=== PATIENT | female | born 1960 | race Caucasian/White ===

== ENCOUNTER 2016-11-03 19:07 | Observation (INO) | payer BC ==
[~2016-11-03] VITALS: Ht 165.1 cm; Wt 99.9 kg
[~2016-11-03 19:07] MED LIST: ACYC400T PO; CHLO10CA5 PO; GLUC100018 PO; LANS30CA66 PO; LOSA100T6 PO; MULT-475 PO; VENL150C6 PO
--- NOTE | 2016-11-03 19:17 | PHYS DOC ---
Past Medical History Past Medical History: Depression, DVT, Hypertension, IBS Additional Past Medical Histor: gastroparesis Past Surgical History: Cholecystectomy, , Hysterectomy Alcohol Use: None Drug Use: None Adult General Chief Complaint Chief Complaint: LOWER EXT PAIN HPI HPI Patient is a 56 year old female who presents with swelling and pain in the left leg. She states it started last night around the medial aspect of her left ankle and with touch to hurts. She states she's had a blood clot in the right leg which feels completely different than the sensation she filling the left leg. He states reason she had her blood clot last time was she was on hormone replacement and a smoker. She denies any shortness breath chest pain nausea vomiting. She does have a history of hypertension and depression. Review of Systems Review of Systems Constitutional: Denies fever or chills [] Eyes: Denies change in visual acuity, redness, or eye pain [] HENT: Denies nasal congestion or sore throat [] Respiratory: Denies cough or shortness of breath [] Cardiovascular: No additional information not addressed in HPI [] GI: Denies abdominal pain, nausea, vomiting, bloody stools or diarrhea [] : Denies dysuria or hematuria [] Musculoskeletal: Denies back pain or joint pain [] Integument: Denies rash or skin lesions [] Neurologic: Denies headache, focal weakness or sensory changes [] Endocrine: Denies polyuria or polydipsia [] Current Medications Current Medications Current Medications Medications (Trade) Dose Ordered Sig/Riley Start Time Stop Time Status Last Admin Dose Admin Enoxaparin Sodium (Lovenox Per Pharmacy Treatment Dosing) 1 each PRN DAILY PRN 11/03/16 20:45 UNV Morphine Sulfate 2 mg PRN Q2HR PRN 11/03/16 20:45 11/04/16 20:44 UNV Ondansetron HCl (Zofran) 4 mg PRN Q8HRS PRN 11/03/16 20:45 11/04/16 20:44 UNV Allergies Allergies Allergies Coded Allergies Type Severity Reaction Last Updated Verified citalopram Allergy Intermediate 04/24/16 Yes Physical Exam Physical Exam Constitutional: Well developed, well nourished, no acute distress, non-toxic appearance. [] HENT: Normocephalic, atraumatic, bilateral external ears normal, oropharynx moist, no oral exudates, nose normal. [] Eyes: PERRLA, EOMI, conjunctiva normal, no discharge. [] Neck: Normal range of motion, no tenderness, supple, no stridor. [] Cardiovascular:Heart rate regular rhythm, no murmur [] Lungs & Thorax: Bilateral breath sounds clear to auscultation [] Abdomen: Bowel sounds normal, soft, no tenderness, no masses, no pulsatile masses. [] Skin: Warm, dry, erythema partially 8 x 10 cm on the left medial ankle. Back: No tenderness, no CVA tenderness. [] Extremities: No tenderness, no cyanosis, no clubbing, ROM intact, no edema. [] Neurologic: Alert and oriented X 3, normal motor function, normal sensory function, no focal deficits noted. [] Psychologic: Affect normal, judgement normal, mood normal. [] Current Patient Data Vital Signs Vital Signs Date Time Temp Pulse Resp B/P (MAP) Pulse Ox O2 Delivery O2 Flow Rate FiO2 11/03/16 19:15 98.7 77 20 148/67 (94) 95 Room Air 98.7 Lab Values Laboratory Tests Test 11/03/16 19:35 White Blood Count 7.3 x10^3/uL (4.0-11.0) Red Blood Count 4.58 x10^6/uL (3.50-5.40) Hemoglobin 14.0 g/dL (12.0-15.5) Hematocrit 41.8 % (36.0-47.0) Mean Corpuscular Volume 91 fL (79-100) Mean Corpuscular Hemoglobin 31 pg (25-35) Mean Corpuscular Hemoglobin Concent 34 g/dL (31-37) Red Cell Distribution Width 13.5 % (11.5-14.5) Platelet Count 143 x10^3/uL (140-400) Neutrophils (%) (Auto) 57 % (31-73) Lymphocytes (%) (Auto) 35 % (24-48) Monocytes (%) (Auto) 7 % (0-9) Eosinophils (%) (Auto) 0 % (0-3) Basophils (%) (Auto) 0 % (0-3) Neutrophils # (Auto) 4.2 x10^3uL (1.8-7.7) Lymphocytes # (Auto) 2.6 x10^3/uL (1.0-4.8) Monocytes # (Auto) 0.5 x10^3/uL (0.0-1.1) Eosinophils # (Auto) 0.0 x10^3/uL (0.0-0.7) Basophils # (Auto) 0.0 x10^3/uL (0.0-0.2) Sodium Level 143 mmol/L (136-145) Potassium Level 4.1 mmol/L (3.5-5.1) Chloride Level 108 mmol/L (98-107) H Carbon Dioxide Level 27 mmol/L (21-32) Anion Gap 8 (6-14) Blood Urea Nitrogen 17 mg/dL (7-20) Creatinine 1.2 mg/dL (0.6-1.0) H Estimated GFR (Cockcroft-Gault) 46.3 BUN/Creatinine Ratio 14 (6-20) Glucose Level 110 mg/dL (70-99) H Calcium Level 8.8 mg/dL (8.5-10.1) Total Bilirubin 0.2 mg/dL (0.2-1.0) Aspartate Amino Transferase (AST) 15 U/L (15-37) Alanine Aminotransferase (ALT) 23 U/L (14-59) Alkaline Phosphatase 110 U/L (46-116) Total Protein 6.4 g/dL (6.4-8.2) Albumin 3.3 g/dL (3.4-5.0) L Albumin/Globulin Ratio 1.1 (1.0-1.7) Laboratory Tests 11/03/16 19:35 Laboratory Tests 11/03/16 19:35 EKG EKG [] Radiology/Procedures Radiology/Procedures Ultrasound shows she's positive for DVT left lower extremities. We'll start Lovenox admit to the hospitalist. Patient's in stable condition this time interim orders have been written. Impressions: Lower extremity DVT Course & Med Decision Making Course & Med Decision Making Pertinent Labs and Imaging studies reviewed. (See chart for details) [] Dragon Disclaimer Dragon Disclaimer This electronic medical record was generated, in whole or in part, using a voice recognition dictation system. Departure Departure Impression: Primary Impression: DVT (deep venous thrombosis) Disposition: ADMITTED INPATIENT Admitting Physician: Other Condition: STABLE Referrals: THOMAS TALAMANTES (PCP) JULIANA BURROUGHS MD Nov 03, 2016 19:17
[2016-11-03 20:08] LABS: BASO % 0 % (0-3); EOS % 0 % (0-3); HEMATOCRIT 41.8 % (36.0-47.0); LYMPH # 2.6 x10^3/uL (1.0-4.8); LYMPH % 35 % (24-48); MEAN CORPUSCULAR HEMOGLOBIN 31 pg (25-35); MEAN CORPUSCULAR HGB CONC 34 g/dL (31-37); MEAN CORPUSCULAR VOLUME 91 fL (79-100); MONO % 7 % (0-9); NEUT % 57 % (31-73); PLATELET COUNT 143 x10^3/uL (140-400); RED BLOOD COUNT 4.58 x10^6/uL (3.50-5.40); RED CELL DISTRIBUTION WIDTH 13.5 % (11.5-14.5); WHITE BLOOD COUNT 7.3 x10^3/uL (4.0-11.0)
[2016-11-03 20:26] LABS: CALCIUM 8.8 mg/dL (8.5-10.1); CREATININE 1.2 mg/dL (0.6-1.0); GFR 46.3; POTASSIUM 4.1 mmol/L (3.5-5.1)
[2016-11-03 20:31] LABS: ALBUMIN 3.3 g/dL (3.4-5.0); ALBUMIN/GLOBULIN RATIO 1.1 (1.0-1.7); TOTAL BILIRUBIN 0.2 mg/dL (0.2-1.0); TOTAL PROTEIN 6.4 g/dL (6.4-8.2)
[2016-11-03] MEDS ORDERED: ONDANSETRON PF 4 MG/2 ML VIAL. IV PRN (20:45)
[2016-11-03] MEDS ORDERED: MORPHINE SULFATE 2 MG/ML DISP.SYRIN. IV PRN (20:45)
--- NOTE | 2016-11-03 20:45 | RAD ---
Left leg venous Doppler study: Clinical indications: Left leg swelling and pain. Left lower leg and ankle redness and swelling. History of DVT 5 years ago on the right side. Findings: Duplex sonography (including chavez scale evaluation and color flow and waveform spectral analysis) of the proximal aspect of the greater saphenous vein and the proximal aspect of the profunda femoral vein and the entire length of the common femoral and superficial femoral and popliteal veins and the tibioperoneal trunk and the proximal aspect of the posterior tibial and peroneal veins of the left leg was performed. There is occlusive thrombosis within one of the paired left posterior tibial veins. The other posterior tibial vein is patent. The peroneal veins are patent. The femoral popliteal segment is patent. There is nonocclusive thrombosis within the left greater saphenous vein of the proximal left lower leg extending through to the ankle. The greater saphenous vein is patent within the thigh up to the confluence with the common femoral vein.. Impression: Occlusive DVT in one of the paired left posterior tibial veins. Nonocclusive thrombosis within the left greater saphenous vein within the left lower leg. Electronically signed by: Anuj Galarza MD (11/03/2016 8:42 PM)
[2016-11-03] MEDS ORDERED: LOSARTAN POTASSIUM 50 MG TABLET. PO SCH (22:30)
[2016-11-03] MEDS: VENLAFAXINE 50 MG TABLET. PO SCH (23:09)
[2016-11-03] MEDS: LORazepam 0.5 MG TABLET PO SCH (23:11)
[2016-11-03 23:22] VITALS: BP 135/66
--- NOTE | 2016-11-04 00:26 | HP ---
ADMIT DATE: 11/03/2016 CHIEF COMPLAINT: Lower extremity pain ____. HISTORY OF PRESENT ILLNESS: This is a 56-year-old woman with past medical history of DVT, who presented to the Emergency Room with pain and swelling in her left ankle. She related that this essentially started the day before when she was getting up from work to go home with a sharp, shooting pain into her ankle. She had noted some swelling as well, which however, had gone away by the time she woke up the next morning. Swelling and pain; however, recurred. She describes it as pins and needles or bees stinging her. Swelling also increased during the day and she decided to go [facility]. She was referred to the Emergency Room, as ultrasound could not be performed there and it was found positive for DVT here in the Emergency Room and started on Lovenox. Complicating factors include that she had a torn meniscus in her left knee about 4 weeks ago for which she is using a knee brace at work. She does have a history of prior DVT about 5 years ago, which apparently was unprovoked. Thought was that this potentially was related to her position at work with her lower extremities kept under her chair. She has been taking a baby aspirin since then to help prevent further episodes. PAST MEDICAL HISTORY: Hypertension, IBS, depression and gastroparesis. PAST SURGICAL HISTORY: Cholecystectomy, and hysterectomy. FAMILY HISTORY: Negative for DVTs. Father of sudden at age 37. SOCIAL HISTORY: She is , living with her . Smokes half to 1 pack a day. No toxic habits. ALLERGIES: CITALOPRAM, UNKNOWN REACTION. MEDICATIONS: MAR reconciled with home medications. REVIEW OF SYSTEMS: Positive only as per HPI for leg pain and swelling. Rest of organ system review is negative, particularly no chest pain or shortness of breath. PHYSICAL EXAMINATION: VITAL SIGNS: From today show a blood pressure of 125/61, heart rate of 68, respiratory rate at 20. She is afebrile. GENERAL: This is a 56-year-old woman, alert and oriented, in no acute distress. HEENT: Shows no scleral icterus. NECK: Supple without any lymphadenopathy. LUNGS: Clear. HEART: Regular rate and rhythm. ABDOMEN: Has positive bowel sounds, soft, nontender. EXTREMITIES: Show 1+ edema around her ankle and mid calf. Medial aspect of her distal lower extremity and ankle show mild erythema. SKIN: Otherwise, warm, soft and dry. LABORATORY DATA: CBC with a WBC of 7.3, hemoglobin 14, platelets of 143. Chemistries with a BUN and creatinine of 17 and 1.2, normal electrolytes, normal LFTs, albumin at 3.3. IMAGING STUDIES: Lower extremity ultrasound reveals nonocclusive thrombosis within the left greater saphenous vein within the left lower leg. ASSESSMENT AND PLAN: The patient is a 56-year-old woman with a second blood clot in 5 years. This event may have been incited by wearing a leg brace. She has been started on Lovenox. Plans are to switch her to an oral antithrombin inhibitor in the morning. As this is her second event, a thrombotic panel has been obtained. Results unfortunately will not be available for another week or so. She will follow up with her PCP to learn the results. I discussed with her that if these results are negative, recommendations for anticoagulation would be for 3-6 months depending on positive factors in the panel, however, recommendations actually may include up to one year. Lifetime anticoagulation would unlikely to be recommended even with a second event. Blood pressure currently is well controlled. We will continue with her home medications as well as all her other meds. We will omit her baby aspirin for the time being. She can restart it once anticoagulant therapy has been completed. ELENA SKINNER MD DR: ADOLFO/nts JOB#: [id number] / [id number] THOMAS Arnold
[2016-11-04 03:18] VITALS: BP 126/70
[2016-11-04 07:00] VITALS: BP 111/72
[2016-11-04] MEDS ORDERED: PANTOPRAZOLE 40 MG TABLET.DR. PO SCH (07:30)
[2016-11-04] MEDS: LORazepam 0.5 MG TABLET PO SCH (08:43)
[2016-11-04] MEDS: VENLAFAXINE 50 MG TABLET. PO SCH (08:43)
[2016-11-04] MEDS ORDERED: ACYCLOVIR 200 MG CAPSULE. PO SCH (09:00)
[2016-11-04] MEDS ORDERED: RIVA20TA2 PO (10:14)
[2016-11-04 10:56] VITALS: BP 134/73
[2016-11-08 08:06] LABS: ANTITHROMBIN III SEE SEPARATE REPORT; LUPUS ANTICOAGULANT SEE SEPARATE REPORT
== END 2016-11-04 11:48 | disposition home or self-care (01) ==
LOC: ER 19:07 → 6 SOUTH 20:40
PROVIDERS: ADMIT Internal Medicine Hematology & Oncology; ATTEND Internal Medicine Hematology & Oncology
DX: I82.812 Embolism and thrombosis of superficial veins of left lower extremity (principal); I10 Essential (primary) hypertension; K58.9 Irritable bowel syndrome, unspecified; F32.9 Major depressive disorder, single episode, unspecified; K31.84 Gastroparesis; F17.210 Nicotine dependence, cigarettes, uncomplicated; Z79.01 Long term (current) use of anticoagulants
CPT/HCPCS: 36415; 80053; 83090; 85027; 93971; 96372; 99285; G0378; J1650; 85300; 85610; 86147; G0379